=== PATIENT | male | born 1975 | race Caucasian/White ===

== ENCOUNTER → 2023-03-01 | Outpatient (CLI) | payer BC ==
[~2023-03-01] MED LIST: ATIVAN 1MG T1 MG/TAB PO; BENICAR HCT 251 TAB PO; COREG 25MG25 MG/TAB PO; NORVASC 10MG10 MG PO; PREVACID24HROTC; PROZAC40 MG PO; SYNTHROID0.05 MG/TA PO; VIAGRA50 M1
== END ==
LOC: COL.VAS 08:10
DX: M79.89 Other specified soft tissue disorders (principal)